=== PATIENT | female | born 1985 | race Caucasian/White ===

== ENCOUNTER 2017-08-25 23:51 | Emergency (ER) | payer OTHER ==
[2017-08-26] MEDS ORDERED: Loratadine 10 MG TAB PO SCH (00:30)
[2017-08-26] MEDS ORDERED: Hydrocortisone 1% Cream 30 GM TUBE TOP SCH (00:30)
== END 2017-08-26 01:32 | disposition home or self-care (01) ==
LOC: ERS 23:51
DX: L20.9 Atopic dermatitis, unspecified (principal)
CPT/HCPCS: 99282

== ENCOUNTER 2021-02-05 07:51 | Outpatient (CLI) | payer OTHER ==
[2021-02-05 23:51] LABS: SARS-CoV-2 PCR by NAA Not Detected (NotDetected)
== END 2021-02-05 07:52 | disposition home or self-care (01) ==
LOC: LABBT 07:51
PROVIDERS: ATTEND Otolaryngology Plastic Surgery within the Head & Neck
DX: Z20.822 Contact with and (suspected) exposure to COVID-19 (principal)
CPT/HCPCS: 87635; U0003; U0005

== ENCOUNTER 2021-02-09 12:38 | Day surgery (SDC) | payer OTHER ==
[2021-02-05 12:18] VITALS: BMI 24.3
[2021-02-09] MEDS ORDERED: Sodium Bicarbonate 2.5 MEQ/5 ML VIAL ONE (12:40)
[2021-02-09] MEDS ORDERED: Lidocaine 1% PF 5 ML VIAL ONE (12:40)
[2021-02-09 14:05] VITALS: BP 120/75; TEMP 98.2
== END 2021-02-09 13:45 | disposition home or self-care (01) ==
LOC: ULT 12:38
PROVIDERS: ATTEND Otolaryngology Plastic Surgery within the Head & Neck
PROC: 0G9G3ZX Drainage of Left Thyroid Gland Lobe, Percutaneous Approach, Diagnostic (ICD-10-PCS; principal; 2021-02-09)
DX: E04.1 Nontoxic single thyroid nodule (principal); J30.2 Other seasonal allergic rhinitis
CPT/HCPCS: 60100; 76942; 88173